=== PATIENT | male | born 1960 | race African-American/Black ===

== ENCOUNTER 2017-03-20 06:45 | Inpatient (IN) ==
[2017-03-20] MEDS ORDERED: SODIUM CHLORIDE 0.9% 1,000 ML IV STA (07:00)
[2017-03-20] MEDS ORDERED: CLINDAMYCIN INJ 900 MG in PREMIX 1 EACH IV STA (07:31)
[2017-03-20] MEDS ORDERED: LEVOFLOXACIN INJ 500 MG in PREMIX 1 EACH IV STA (07:31)
[2017-03-20 07:33] LABS: Basophils # 0.1 10*3/uL (0.0-0.2); Basophils % 0.4 % (0.0-0.8); Eosinophils # 0.2 10*3/uL (0.0-0.87); Eosinophils % 1.2 % (0.00-10.9); Hematocrit 33.7 VOL% (42.0-52.0); Hemoglobin 12.1 GM/DL (14.0-18.0); Immature Granulocytes % 1.7 %; Lymphocytes # 2.6 10*3/uL (1.4-4.0); Lymphocytes % 21.5 % (21.2-54.2); Mean Corpuscular HGB Conc 35.9 GM/DL (32-36); Mean Corpuscular Hemoglobin 33 PG (27-34); Mean Corpuscular Volume 92.3 FL (87-102); Mean Platelet Volume 10.9 FL (9.6-12.0); Monocytes % 8.6 % (1.7-12.7); Neutrophils % 66.6 % (38.7-73.9); Platelet Count 366 T/CUMM (130-400); Red Blood Count 3.65 MC/CUMM (3.8-5.5); Red Cell Distribution Width 11.6 % (9.3-17.3); White Blood Count 12.1 T/CUMM (4-12)
[2017-03-20 07:44] LABS: Apearance,Urine CLEAR (Clear); Bilirubin,Urine Negative (Negative); Blood, Urine Negative (Negative); Glucose,Urine (UA) >=500 mg/dL (Negative); Ketones,Urine Negative (Negative); Nitrite,Urine Negative (Negative); Protein,Urine Negative; RBC,Urine <1 /HPF (0-4); Urine Color Yellow (Yellow); Urine Specific Gravity 1.026 (1.001-1.035)
[2017-03-20] MEDS ORDERED: LEVOFLOXACIN INJ 100 ML IV ONE (07:47)
[2017-03-20 07:51] LABS: Albumin 1.7 G/DL (3.4-5.0); Calcium 7.8 MG/DL (8.5-10.1); Magnesium 1.8 MG/DL (1.8-2.4); Osmolality,Calculated 278.1 MOS/KG (273-304); Potassium 4.6 MMOL/L (3.5-5.1); Total Protein 6.7 G/DL (6.4-8.3)
[2017-03-20] MEDS ORDERED: MORPHINE 2 MG/1 ML SYRINGE IV PRN (08:00)
[2017-03-20] MEDS ORDERED: PIPERACILLIN/TAZOBACTAM 3,375 MG in SODIUM CHLORIDE 0.9% 100 ML IV SCH (08:00)
[2017-03-20 08:23] LABS: Risk Ratio 5.5; VLDL CHOLESTEROL 99.2 MG/DL
[2017-03-20 08:33] LABS: ABG Base Excess 1.5 MMOL/L (-2.5-2.5); ABG HCO3 25.4 MMOL/L (20-26); ABG Oxygen Saturation 80.7 % (95-100); ABG PCO2 38.1 MM HG (35-48); ABG PH 7.436 (7.35-7.45); ABG PO2 46.2 MM HG (80-95); ABG TCO2 23.1 MMOL/L (23-27)
[2017-03-20] MEDS ORDERED: CLINDAMYCIN INJ 50 ML IV ONE (08:58)
[2017-03-20] MEDS ORDERED: INSULIN LISPRO 100 UNIT/ML SUBCUT ONE ×2 (09:25→09:31)
[2017-03-20] MEDS ORDERED: VANCOMYCIN INJ 1,000 MG in SODIUM CHLORIDE 0.9% 250 ML IV ONE (09:30)
[2017-03-20] MEDS: PANTOPRAZOLE 40 MG VIAL IV SCH (10:08)
[2017-03-20] MEDS: SODIUM CHLORIDE 0.45% 1,000 ML IV SCH (10:09)
[2017-03-20] MEDS ORDERED: DEXTROSE 50% 25 GM/50 ML VIAL IV PRN (11:06)
[2017-03-20] MEDS ORDERED: GLUCAGON 1 MG VIAL IM PRN (11:06)
[2017-03-20] MEDS: INSULIN REGULAR 100 UNIT/ML SUBCUT SCH ×3 (13:28→20:57)
[2017-03-20] MEDS: CLINDAMYCIN INJ 600 MG in PREMIX 1 EACH IV SCH ×2 (14:28→21:04)
[2017-03-20] MEDS: SIMVASTATIN 80 MG TABLET PO SCH (16:44)
[2017-03-20] MEDS: INSULIN ASPART PROTAMINE/ASPART 70/30 100 UNIT/ML SUBCUT SCH (16:44)
[2017-03-20] MEDS: metFORMIN 500 MG TABLET PO SCH (16:44)
[2017-03-20] MEDS ORDERED: VANCOMYCIN INJ 1,000 MG in SODIUM CHLORIDE 0.9% 250 ML IV SCH (21:00)
[2017-03-20] MEDS: CHLORHEXIDINE 0.12% ORAL RINSE 60 ML BOTTLE SWISH/SPIT SCH (21:03)
[2017-03-21] MEDS ORDERED: KETOROLAC 30 MG/1 ML VIAL IV ONE (01:28)
[2017-03-21] MEDS ORDERED: DILTIAZEM 50 MG/10 ML VIAL IV ONE ×2 (01:36→02:00)
[2017-03-21] MEDS ORDERED: ENOXAPARIN 80 MG/0.8 ML SYRINGE SUBCUT ONE (01:38)
[2017-03-21 01:51] LABS: Basophils % 0.3 % (0.0-0.8); Eosinophils # 0.1 10*3/uL (0.0-0.87); Eosinophils % 0.5 % (0.00-10.9); Hematocrit 34.1 VOL% (42.0-52.0); Hemoglobin 11.8 GM/DL (14.0-18.0); Immature Granulocytes % 1.3 %; Immature Granulocytes Absolute 0.17 #; Lymphocytes # 1.3 10*3/uL (1.4-4.0); Lymphocytes % 9.8 % (21.2-54.2); Mean Corpuscular HGB Conc 34.6 GM/DL (32-36); Mean Corpuscular Hemoglobin 32 PG (27-34); Mean Corpuscular Volume 93.2 FL (87-102); Mean Platelet Volume 10.1 FL (9.6-12.0); Monocytes # 1.3 10*3/uL (0.11-0.8); Monocytes % 9.6 % (1.7-12.7); Neutrophils # 10.4 10*3/uL (1.4-7.4); Neutrophils % 78.5 % (38.7-73.9); Platelet Count 297 T/CUMM (130-400); Red Blood Count 3.66 MC/CUMM (3.8-5.5); Red Cell Distribution Width 11.4 % (9.3-17.3); White Blood Count 13.2 T/CUMM (4-12)
[2017-03-21 02:05] LABS: Albumin 1.7 G/DL (3.4-5.0); Bilirubin,Total 0.9 MG/DL (0.2-1.0); Calcium 8.4 MG/DL (8.5-10.1); Osmolality,Calculated 266.2 MOS/KG (273-304); Potassium 4.6 MMOL/L (3.5-5.1); Total Protein 6.6 G/DL (6.4-8.3)
[2017-03-21] MEDS ORDERED: SODIUM CHLORIDE 0.9% 500 ML IV ONE (02:12)
[2017-03-21] MEDS: SODIUM CHLORIDE 0.45% 1,000 ML IV SCH ×3 (02:32→14:14)
[2017-03-21] MEDS: ENOXAPARIN 80 MG/0.8 ML SYRINGE SUBCUT SCH ×2 (02:32→14:09)
[2017-03-21] MEDS: CLINDAMYCIN INJ 600 MG in PREMIX 1 EACH IV SCH ×4 (02:33→20:42)
[2017-03-21 02:57] LABS: Troponin I Only 0.019 NG/ML (0.00-0.045)
[2017-03-21] MEDS ORDERED: traZODone 50 MG TABLET PO SCH (09:00)
[2017-03-21] MEDS: CHLORHEXIDINE 0.12% ORAL RINSE 60 ML BOTTLE SWISH/SPIT SCH ×2 (09:04→23:37)
[2017-03-21] MEDS: INSULIN ASPART PROTAMINE/ASPART 70/30 100 UNIT/ML SUBCUT SCH ×2 (09:04→16:56)
[2017-03-21] MEDS: ASPIRIN EC 325 MG TABLET PO SCH (09:05)
[2017-03-21] MEDS: INSULIN REGULAR 100 UNIT/ML SUBCUT SCH ×4 (09:05→20:43)
[2017-03-21] MEDS: CITALOPRAM 20 MG TABLET PO SCH (09:06)
[2017-03-21] MEDS: metFORMIN 500 MG TABLET PO SCH ×2 (09:06→16:56)
[2017-03-21] MEDS: PANTOPRAZOLE 40 MG VIAL IV SCH (09:06)
[2017-03-21] MEDS: LEVOFLOXACIN INJ 750 MG in PREMIX 1 EACH IV SCH (10:37)
[2017-03-21] MEDS: LISINOPRIL/HCTZ 10-12.5 MG TABLET PO SCH (10:38)
[2017-03-21 11:53] LABS: Barbiturates Screen,Urine Negative (Negative); Benzodiazepines Screen,Urine Negative (Negative); Cannabinoid Screen,Urine Negative (Negative); Opiate Screen,Urine Negative (Negative); Phencyclidine Screen,Urine Negative (Negative)
[2017-03-21] MEDS ORDERED: ENOXAPARIN 80 MG/0.8 ML SYRINGE SUBCUT SCH (14:00)
[2017-03-21] MEDS: SIMVASTATIN 40 MG TABLET PO SCH (14:05)
[2017-03-21] MEDS: SIMVASTATIN 80 MG TABLET PO SCH (14:15)
[2017-03-22] MEDS: SODIUM CHLORIDE 0.45% 1,000 ML IV SCH (01:48)
[2017-03-22] MEDS: CLINDAMYCIN INJ 600 MG in PREMIX 1 EACH IV SCH ×3 (03:21→18:10)
[2017-03-22] MEDS: ENOXAPARIN 80 MG/0.8 ML SYRINGE SUBCUT SCH (03:21)
[2017-03-22 09:02] LABS: Calcium 7.7 MG/DL (8.5-10.1); Magnesium 1.7 MG/DL (1.8-2.4); Osmolality,Calculated 271.5 MOS/KG (273-304); Potassium 4.7 MMOL/L (3.5-5.1)
[2017-03-22] MEDS: SIMVASTATIN 40 MG TABLET PO SCH (09:12)
[2017-03-22] MEDS: LEVOFLOXACIN 750 MG TABLET PO SCH (09:12)
[2017-03-22] MEDS: metFORMIN 500 MG TABLET PO SCH ×2 (09:12→18:10)
[2017-03-22] MEDS: CITALOPRAM 20 MG TABLET PO SCH (09:13)
[2017-03-22] MEDS: ASPIRIN EC 325 MG TABLET PO SCH (09:13)
[2017-03-22] MEDS: LISINOPRIL/HCTZ 10-12.5 MG TABLET PO SCH (09:13)
[2017-03-22] MEDS: PANTOPRAZOLE 40 MG VIAL IV SCH (09:15)
[2017-03-22] MEDS: INSULIN ASPART PROTAMINE/ASPART 70/30 100 UNIT/ML SUBCUT SCH ×2 (09:15→18:10)
[2017-03-22] MEDS: INSULIN REGULAR 100 UNIT/ML SUBCUT SCH ×4 (09:15→20:59)
[2017-03-22] MEDS: CHLORHEXIDINE 0.12% ORAL RINSE 60 ML BOTTLE SWISH/SPIT SCH ×2 (09:16→20:59)
[2017-03-22] MEDS: LEVOFLOXACIN INJ 750 MG in PREMIX 1 EACH IV SCH (12:30)
[2017-03-22] MEDS: ENOXAPARIN 40 MG/0.4 ML SYRINGE SUBCUT SCH (20:55)
[2017-03-22] MEDS: traZODone 50 MG TABLET PO SCH (20:55)
[2017-03-23] MEDS: CLINDAMYCIN INJ 600 MG in PREMIX 1 EACH IV SCH ×5 (01:12→23:28)
[2017-03-23 04:53] LABS: Basophils % 0.3 % (0.0-0.8); Eosinophils % 0.2 % (0.00-10.9); Hemoglobin 10.3 GM/DL (14.0-18.0); Immature Granulocytes % 2.6 %; Immature Granulocytes Absolute 0.35 #; Lymphocytes # 1.6 10*3/uL (1.4-4.0); Lymphocytes % 11.6 % (21.2-54.2); Mean Corpuscular HGB Conc 34.3 GM/DL (32-36); Mean Corpuscular Hemoglobin 32 PG (27-34); Mean Corpuscular Volume 93.8 FL (87-102); Mean Platelet Volume 9.8 FL (9.6-12.0); Monocytes # 1.2 10*3/uL (0.11-0.8); Monocytes % 8.8 % (1.7-12.7); Neutrophils # 10.3 10*3/uL (1.4-7.4); Neutrophils % 76.5 % (38.7-73.9); Platelet Count 315 T/CUMM (130-400); Red Cell Distribution Width 11.7 % (9.3-17.3); White Blood Count 13.5 T/CUMM (4-12)
[2017-03-23 05:26] LABS: Calcium 8.3 MG/DL (8.5-10.1); Magnesium 1.7 MG/DL (1.8-2.4); Osmolality,Calculated 266.2 MOS/KG (273-304); Potassium 4.2 MMOL/L (3.5-5.1)
[2017-03-23] MEDS: INSULIN REGULAR 100 UNIT/ML SUBCUT SCH ×4 (08:45→20:49)
[2017-03-23] MEDS: PANTOPRAZOLE 40 MG VIAL IV SCH (08:46)
[2017-03-23] MEDS: SIMVASTATIN 40 MG TABLET PO SCH (08:47)
[2017-03-23] MEDS: LISINOPRIL/HCTZ 10-12.5 MG TABLET PO SCH (08:47)
[2017-03-23] MEDS: CITALOPRAM 20 MG TABLET PO SCH (08:48)
[2017-03-23] MEDS: LEVOFLOXACIN INJ 750 MG in PREMIX 1 EACH IV SCH (08:48)
[2017-03-23] MEDS: LEVOFLOXACIN 750 MG TABLET PO SCH (08:48)
[2017-03-23] MEDS: ASPIRIN EC 325 MG TABLET PO SCH ×2 (08:48→12:43)
[2017-03-23] MEDS: metFORMIN 500 MG TABLET PO SCH ×3 (09:43→16:58)
[2017-03-23] MEDS: INSULIN ASPART PROTAMINE/ASPART 70/30 100 UNIT/ML SUBCUT SCH ×3 (09:43→16:59)
[2017-03-23] MEDS ORDERED: MAGNESIUM SULF RIDER 4 GM in PREMIX 1 EACH IV ONE (09:51)
[2017-03-23] MEDS: CHLORHEXIDINE 0.12% ORAL RINSE 60 ML BOTTLE SWISH/SPIT SCH ×2 (10:57→22:34)
[2017-03-23] MEDS: traZODone 50 MG TABLET PO SCH (20:48)
[2017-03-23] MEDS: ENOXAPARIN 40 MG/0.4 ML SYRINGE SUBCUT SCH (20:49)
[2017-03-24 05:06] LABS: Basophils # 0.1 10*3/uL (0.0-0.2); Basophils % 0.5 % (0.0-0.8); Eosinophils # 0.2 10*3/uL (0.0-0.87); Eosinophils % 1.7 % (0.00-10.9); Hematocrit 30.5 VOL% (42.0-52.0); Hemoglobin 10.1 GM/DL (14.0-18.0); Immature Granulocytes Absolute 0.64 #; Lymphocytes # 1.8 10*3/uL (1.4-4.0); Lymphocytes % 17.2 % (21.2-54.2); Mean Corpuscular HGB Conc 33.1 GM/DL (32-36); Mean Corpuscular Hemoglobin 32 PG (27-34); Mean Corpuscular Volume 97.1 FL (87-102); Mean Platelet Volume 10.6 FL (9.6-12.0); Monocytes # 1.1 10*3/uL (0.11-0.8); Monocytes % 10.3 % (1.7-12.7); Neutrophils # 6.8 10*3/uL (1.4-7.4); Neutrophils % 64.3 % (38.7-73.9); Platelet Count 325 T/CUMM (130-400); Red Blood Count 3.14 MC/CUMM (3.8-5.5); Red Cell Distribution Width 12.1 % (9.3-17.3); White Blood Count 10.6 T/CUMM (4-12)
[2017-03-24 05:38] LABS: Band Neutrophils 5 % (0-10); Eosinophils 2 % (0-10); Hypochromasia 1+; Lymphocytes 17 % (20-55); Metamyelocytes 1 %; Myelocytes 2 %; Segmented Neutrophils 64 % (50-85); Total Cells Counted 100
[2017-03-24 05:39] LABS: Albumin 1.6 G/DL (3.4-5.0); Calcium 8.2 MG/DL (8.5-10.1); Osmolality,Calculated 276.5 MOS/KG (273-304); Platelet Estimate Normal; Potassium 4.8 MMOL/L (3.5-5.1); Total Protein 6.5 G/DL (6.4-8.3)
[2017-03-24] MEDS: CLINDAMYCIN INJ 600 MG in PREMIX 1 EACH IV SCH ×2 (05:45→12:30)
[2017-03-24 07:37] VITALS: BP 111/58
[2017-03-24] MEDS: LEVOFLOXACIN 750 MG TABLET PO SCH (09:41)
[2017-03-24] MEDS: LISINOPRIL/HCTZ 10-12.5 MG TABLET PO SCH (09:41)
[2017-03-24] MEDS: SIMVASTATIN 40 MG TABLET PO SCH (09:41)
[2017-03-24] MEDS: ASPIRIN EC 325 MG TABLET PO SCH (09:41)
[2017-03-24] MEDS: INSULIN REGULAR 100 UNIT/ML SUBCUT SCH ×2 (09:42→12:20)
[2017-03-24] MEDS: CITALOPRAM 20 MG TABLET PO SCH (09:42)
[2017-03-24] MEDS: metFORMIN 500 MG TABLET PO SCH (09:42)
[2017-03-24] MEDS: PANTOPRAZOLE 40 MG VIAL IV SCH (09:42)
[2017-03-24] MEDS: LEVOFLOXACIN INJ 750 MG in PREMIX 1 EACH IV SCH (09:47)
[2017-03-24] MEDS: CHLORHEXIDINE 0.12% ORAL RINSE 60 ML BOTTLE SWISH/SPIT SCH (09:53)
[2017-03-24] MEDS: INSULIN ASPART PROTAMINE/ASPART 70/30 100 UNIT/ML SUBCUT SCH (10:21)
[2017-03-27] MEDS ORDERED: metFORMIN 500 MG TABLET PO SCH ×2 (08:00→17:00)
[2017-04-02] MEDS ORDERED: metFORMIN 500 MG TABLET PO SCH (08:00)
== END 2017-03-24 12:30 | disposition home or self-care (01) | DRG 871 ==
LOC: EDBD → EDUNIT# → N.ED 06:45 → SUATTDRO 07:54 → N.EDINP 07:54 → N.2E 09:08 → N.TELES 03-21 02:00
PROVIDERS: ADMIT Internal Medicine; ATTEND Internal Medicine

== ENCOUNTER 2017-10-14 12:00 | Inpatient (IN) ==
[2017-10-14 12:43] LABS: Basophils # 0.1 10*3/uL (0.0-0.2); Basophils % 0.8 % (0.0-0.8); Eosinophils # 0.2 10*3/uL (0.0-0.87); Eosinophils % 2.8 % (0.00-10.9); Hematocrit 35.8 VOL% (42.0-52.0); Hemoglobin 12.4 GM/DL (14.0-18.0); Immature Granulocytes % 0.9 %; Immature Granulocytes Absolute 0.07 #; Lymphocytes # 1.7 10*3/uL (1.4-4.0); Lymphocytes % 22.3 % (21.2-54.2); Mean Corpuscular HGB Conc 34.6 GM/DL (32-36); Mean Corpuscular Hemoglobin 32 PG (27-34); Mean Platelet Volume 10.1 FL (9.6-12.0); Monocytes % 13.2 % (1.7-12.7); Neutrophils # 4.5 10*3/uL (1.4-7.4); Platelet Count 266 T/CUMM (130-400); Red Blood Count 3.89 MC/CUMM (3.8-5.5); Red Cell Distribution Width 11.8 % (9.3-17.3); White Blood Count 7.5 T/CUMM (4-12)
[2017-10-14 12:55] LABS: INR 1.1; PT Patient Result 11.5 SECS
[2017-10-14 13:07] LABS: Alanine Aminotransferase 40 U/L (16-61); Albumin 2.3 G/DL (3.4-5.0); Alkaline Phosphatase 84 U/L (45-117); Aspartate Amino Transferase 58 U/L (0-37); Blood Urea Nitrogen 12 MG/DL (7-18); Calcium 8.7 MG/DL (8.5-10.1); Glucose 95 MG/DL (74-106); Osmolality,Calculated 274.7 MOS/KG (273-304); Potassium 3.9 MMOL/L (3.5-5.1); Sodium 138 MMOL/L (136-145); Total Protein 6.9 G/DL (6.4-8.3)
[2017-10-14 13:08] LABS: Lactic Acid 2.7 MMOL/L (0.4-2.0)
[2017-10-14] MEDS ORDERED: SODIUM CHLORIDE 0.9% 1,000 ML IV STA (13:42)
[2017-10-14] MEDS ORDERED: VANCOMYCIN INJ 1,000 MG in SODIUM CHLORIDE 0.9% 250 ML IV STA (13:54)
[2017-10-14] MEDS ORDERED: VANCOMYCIN 1,000 MG VIAL ONE (14:10)
[2017-10-14] MEDS ORDERED: NICOTINE 21 MG/24 HR PATCH TRANSDERM PRN (14:24)
[2017-10-14] MEDS ORDERED: traZODone 50 MG TABLET PO PRN (14:24)
[2017-10-14] MEDS ORDERED: ACETAMINOPHEN 325 MG TABLET PO PRN (14:24)
[2017-10-14] MEDS ORDERED: ONDANSETRON 4 MG/2 ML VIAL IV PRN (14:24)
[2017-10-14] MEDS ORDERED: DOCUSATE SODIUM 100 MG CAPSULE PO PRN (14:24)
[2017-10-14] MEDS ORDERED: diphenhydrAMINE CAP 25 MG CAPSULE PO PRN (14:24)
[2017-10-14] MEDS ORDERED: DEXTROSE 50% 25 GM/50 ML VIAL IV PRN (14:33)
[2017-10-14] MEDS ORDERED: GLUCAGON 1 MG VIAL IM PRN (14:33)
[2017-10-14] MEDS: SODIUM CHLORIDE 0.9% 1,000 ML IV SCH ×2 (15:37→23:18)
[2017-10-14] MEDS: LEVOFLOXACIN INJ 750 MG in PREMIX 1 EACH IV SCH (16:09)
[2017-10-14] MEDS: PANTOPRAZOLE 40 MG TABLET PO SCH (16:09)
[2017-10-14] MEDS: INSULIN LISPRO 100 UNIT/ML SUBCUT SCH (16:10)
[2017-10-14] MEDS: DOCUSATE SODIUM 100 MG CAPSULE PO SCH (20:59)
[2017-10-14] MEDS: VANCOMYCIN INJ 1,000 MG in SODIUM CHLORIDE 0.9% 250 ML IV SCH (23:17)
[2017-10-15 06:47] LABS: Basophils % 0.5 % (0.0-0.8); Eosinophils # 0.2 10*3/uL (0.0-0.87); Eosinophils % 2.1 % (0.00-10.9); Hematocrit 30.5 VOL% (42.0-52.0); Hemoglobin 10.8 GM/DL (14.0-18.0); Immature Granulocytes % 1.5 %; Immature Granulocytes Absolute 0.11 #; Lymphocytes # 1.9 10*3/uL (1.4-4.0); Lymphocytes % 26.6 % (21.2-54.2); Mean Corpuscular HGB Conc 35.4 GM/DL (32-36); Mean Corpuscular Hemoglobin 32 PG (27-34); Mean Platelet Volume 10.5 FL (9.6-12.0); Monocytes # 0.9 10*3/uL (0.11-0.8); Monocytes % 12.5 % (1.7-12.7); Neutrophils # 4.2 10*3/uL (1.4-7.4); Neutrophils % 56.8 % (38.7-73.9); Platelet Count 266 T/CUMM (130-400); Red Blood Count 3.39 MC/CUMM (3.8-5.5); Red Cell Distribution Width 11.7 % (9.3-17.3); White Blood Count 7.3 T/CUMM (4-12)
[2017-10-15] MEDS: VANCOMYCIN INJ 1,000 MG in SODIUM CHLORIDE 0.9% 250 ML IV SCH ×3 (06:50→22:09)
[2017-10-15 07:09] LABS: Calcium 8.1 MG/DL (8.5-10.1); Osmolality,Calculated 273.7 MOS/KG (273-304); Potassium 4.2 MMOL/L (3.5-5.1); Risk Ratio 3.25; VLDL CHOLESTEROL 20.4 MG/DL
[2017-10-15] MEDS: SODIUM CHLORIDE 0.9% 1,000 ML IV SCH ×2 (07:12→19:18)
[2017-10-15] MEDS: INSULIN LISPRO 100 UNIT/ML SUBCUT SCH ×2 (09:19→17:12)
[2017-10-15] MEDS: CITALOPRAM 20 MG TABLET PO SCH (09:21)
[2017-10-15] MEDS: DOCUSATE SODIUM 100 MG CAPSULE PO SCH ×2 (09:21→20:57)
[2017-10-15] MEDS: PANTOPRAZOLE 40 MG TABLET PO SCH (09:21)
[2017-10-15] MEDS ORDERED: BUPIVACAINE 0.5% 50 ML VIAL ONE (11:47)
[2017-10-15] MEDS ORDERED: LIDOCAINE 1% 20 ML VIAL ONE (11:47)
[2017-10-15 12:10] LABS: HIV Antigen/Antibody Result Nonreactive (Nonreactive)
[2017-10-15] MEDS ORDERED: SODIUM CHLORIDE 0.9% 100 ML IV ONE (12:29)
[2017-10-15] MEDS ORDERED: MIDAZOLAM 2 MG/2 ML VIAL ONE (12:29)
[2017-10-15] MEDS ORDERED: PROPOFOL 200 MG/20 ML VIAL IV ONE (12:29)
[2017-10-15] MEDS ORDERED: fentaNYL 100 MCG/2 ML VIAL ONE (12:29)
[2017-10-15] MEDS: LEVOFLOXACIN INJ 750 MG in PREMIX 1 EACH IV SCH (18:25)
[2017-10-16] MEDS: SODIUM CHLORIDE 0.9% 1,000 ML IV SCH ×2 (03:16→14:28)
[2017-10-16] MEDS: VANCOMYCIN INJ 1,000 MG in SODIUM CHLORIDE 0.9% 250 ML IV SCH ×3 (06:24→22:49)
[2017-10-16] MEDS: INSULIN LISPRO 100 UNIT/ML SUBCUT SCH ×2 (09:48→17:47)
[2017-10-16] MEDS: PANTOPRAZOLE 40 MG TABLET PO SCH (09:49)
[2017-10-16] MEDS: CITALOPRAM 20 MG TABLET PO SCH (09:49)
[2017-10-16] MEDS: DOCUSATE SODIUM 100 MG CAPSULE PO SCH ×2 (09:49→21:16)
[2017-10-16] MEDS ORDERED: ACETAMINOPHEN 325 MG TABLET PO PRN (13:02)
[2017-10-16 14:19] LABS: Albumin 1.7 G/DL (3.4-5.0); Bilirubin,Total 0.7 MG/DL (0.2-1.0); Calcium 8.1 MG/DL (8.5-10.1); Osmolality,Calculated 277.1 MOS/KG (273-304); Potassium 3.9 MMOL/L (3.5-5.1); Total Protein 6.1 G/DL (6.4-8.3)
[2017-10-16] MEDS: RIFAMPIN 300 MG CAPSULE PO SCH (14:24)
[2017-10-16] MEDS: PYRIDOXINE 50 MG TABLET PO SCH (14:24)
[2017-10-16] MEDS: ISONIAZID 300 MG TABLET PO SCH (14:24)
[2017-10-16] MEDS: PYRAZINAMIDE 500 MG TABLET PO SCH (14:25)
[2017-10-16] MEDS: ETHAMBUTOL 400 MG TABLET PO SCH (14:31)
[2017-10-16] MEDS: INSULIN ASPART PROTAMINE/ASPART 70/30 100 UNIT/ML SUBCUT SCH (18:48)
[2017-10-16] MEDS: ALBUTEROL/IPRATROPIUM 3 ML NEB RESP TX SCH (19:30)
[2017-10-16] MEDS: traZODone 50 MG TABLET PO SCH (21:16)
[2017-10-16] MEDS: LEVOFLOXACIN INJ 750 MG in PREMIX 1 EACH IV SCH (21:17)
[2017-10-17] MEDS: ALBUTEROL/IPRATROPIUM 3 ML NEB RESP TX SCH ×4 (01:36→19:05)
[2017-10-17 04:17] LABS: Basophils % 0.4 % (0.0-0.8); Eosinophils # 0.2 10*3/uL (0.0-0.87); Eosinophils % 2.9 % (0.00-10.9); Hematocrit 27.6 VOL% (42.0-52.0); Hemoglobin 9.2 GM/DL (14.0-18.0); Immature Granulocytes % 1.3 %; Immature Granulocytes Absolute 0.09 #; Lymphocytes # 1.9 10*3/uL (1.4-4.0); Lymphocytes % 26.2 % (21.2-54.2); Mean Corpuscular HGB Conc 33.3 GM/DL (32-36); Mean Corpuscular Hemoglobin 32 PG (27-34); Mean Corpuscular Volume 94.8 FL (87-102); Mean Platelet Volume 10.2 FL (9.6-12.0); Monocytes % 13.4 % (1.7-12.7); Neutrophils % 55.8 % (38.7-73.9); Platelet Count 244 T/CUMM (130-400); Red Blood Count 2.91 MC/CUMM (3.8-5.5); Red Cell Distribution Width 11.6 % (9.3-17.3); White Blood Count 7.2 T/CUMM (4-12)
[2017-10-17 04:49] LABS: Calcium 7.9 MG/DL (8.5-10.1); Osmolality,Calculated 280.5 MOS/KG (273-304); Potassium 3.9 MMOL/L (3.5-5.1)
[2017-10-17] MEDS: VANCOMYCIN INJ 1,000 MG in SODIUM CHLORIDE 0.9% 250 ML IV SCH ×3 (06:09→22:50)
[2017-10-17] MEDS: DEXTROMETHORPHAN ER 6 MG/ML 90 ML/BOTTLE PO PRN ×2 (06:09→21:31)
[2017-10-17] MEDS: CITALOPRAM 20 MG TABLET PO SCH (09:54)
[2017-10-17] MEDS: ISONIAZID 300 MG TABLET PO SCH (09:54)
[2017-10-17] MEDS: DOCUSATE SODIUM 100 MG CAPSULE PO SCH ×2 (09:54→21:03)
[2017-10-17] MEDS: ETHAMBUTOL 400 MG TABLET PO SCH (09:55)
[2017-10-17] MEDS: PYRIDOXINE 50 MG TABLET PO SCH (09:55)
[2017-10-17] MEDS: RIFAMPIN 300 MG CAPSULE PO SCH (09:55)
[2017-10-17] MEDS: PANTOPRAZOLE 40 MG TABLET PO SCH (09:55)
[2017-10-17] MEDS: PYRAZINAMIDE 500 MG TABLET PO SCH (09:55)
[2017-10-17] MEDS: LISINOPRIL/HCTZ 20-25 MG TABLET PO SCH (09:55)
[2017-10-17] MEDS: INSULIN LISPRO 100 UNIT/ML SUBCUT SCH ×2 (09:57→17:28)
[2017-10-17] MEDS: INSULIN ASPART PROTAMINE/ASPART 70/30 100 UNIT/ML SUBCUT SCH ×3 (09:58→21:31)
[2017-10-17] MEDS: traZODone 50 MG TABLET PO SCH (21:03)
[2017-10-17] MEDS: LEVOFLOXACIN INJ 750 MG in PREMIX 1 EACH IV SCH (21:04)
[2017-10-17] MEDS: CLORAZEPATE 7.5 MG TABLET PO PRN (21:31)
[2017-10-18] MEDS: ALBUTEROL/IPRATROPIUM 3 ML NEB RESP TX SCH ×4 (00:58→18:48)
[2017-10-18 04:18] LABS: Basophils % 0.6 % (0.0-0.8); Eosinophils # 0.2 10*3/uL (0.0-0.87); Eosinophils % 3.1 % (0.00-10.9); Hematocrit 29.9 VOL% (42.0-52.0); Hemoglobin 10.2 GM/DL (14.0-18.0); Immature Granulocytes % 2.9 %; Immature Granulocytes Absolute 0.21 #; Lymphocytes # 1.6 10*3/uL (1.4-4.0); Lymphocytes % 22.2 % (21.2-54.2); Mean Corpuscular HGB Conc 34.1 GM/DL (32-36); Mean Corpuscular Hemoglobin 31 PG (27-34); Mean Corpuscular Volume 91.4 FL (87-102); Mean Platelet Volume 10.1 FL (9.6-12.0); Monocytes # 0.8 10*3/uL (0.11-0.8); Monocytes % 11.8 % (1.7-12.7); Neutrophils # 4.2 10*3/uL (1.4-7.4); Neutrophils % 59.4 % (38.7-73.9); Platelet Count 293 T/CUMM (130-400); Red Blood Count 3.27 MC/CUMM (3.8-5.5); Red Cell Distribution Width 11.7 % (9.3-17.3); White Blood Count 7.1 T/CUMM (4-12)
[2017-10-18 04:52] LABS: Calcium 8.3 MG/DL (8.5-10.1); Osmolality,Calculated 285.4 MOS/KG (273-304); Potassium 3.6 MMOL/L (3.5-5.1)
[2017-10-18] MEDS: VANCOMYCIN INJ 1,000 MG in SODIUM CHLORIDE 0.9% 250 ML IV SCH ×3 (05:20→23:47)
[2017-10-18] MEDS: CITALOPRAM 20 MG TABLET PO SCH (09:25)
[2017-10-18] MEDS: CLORAZEPATE 7.5 MG TABLET PO PRN ×3 (09:25→22:20)
[2017-10-18] MEDS: INSULIN LISPRO 100 UNIT/ML SUBCUT SCH ×2 (10:13→18:27)
[2017-10-18] MEDS: DOCUSATE SODIUM 100 MG CAPSULE PO SCH ×2 (10:14→21:03)
[2017-10-18] MEDS: ISONIAZID 300 MG TABLET PO SCH (10:15)
[2017-10-18] MEDS: LISINOPRIL/HCTZ 20-25 MG TABLET PO SCH (10:15)
[2017-10-18] MEDS: ETHAMBUTOL 400 MG TABLET PO SCH (10:15)
[2017-10-18] MEDS: INSULIN ASPART PROTAMINE/ASPART 70/30 100 UNIT/ML SUBCUT SCH ×2 (10:15→18:27)
[2017-10-18] MEDS: PYRAZINAMIDE 500 MG TABLET PO SCH (10:16)
[2017-10-18] MEDS: RIFAMPIN 300 MG CAPSULE PO SCH (10:16)
[2017-10-18] MEDS: PANTOPRAZOLE 40 MG TABLET PO SCH (10:16)
[2017-10-18] MEDS: PYRIDOXINE 50 MG TABLET PO SCH (10:16)
[2017-10-18] MEDS: traZODone 50 MG TABLET PO SCH (21:03)
[2017-10-18] MEDS: DEXTROMETHORPHAN ER 6 MG/ML 90 ML/BOTTLE PO PRN (21:03)
[2017-10-18] MEDS: LEVOFLOXACIN INJ 750 MG in PREMIX 1 EACH IV SCH (22:18)
[2017-10-19] MEDS: ALBUTEROL/IPRATROPIUM 3 ML NEB RESP TX SCH ×4 (00:27→20:46)
[2017-10-19 04:35] LABS: Basophils # 0.1 10*3/uL (0.0-0.2); Basophils % 0.8 % (0.0-0.8); Eosinophils # 0.4 10*3/uL (0.0-0.87); Eosinophils % 6.5 % (0.00-10.9); Hemoglobin 10.3 GM/DL (14.0-18.0); Immature Granulocytes % 3.6 %; Immature Granulocytes Absolute 0.24 #; Lymphocytes # 1.7 10*3/uL (1.4-4.0); Mean Corpuscular HGB Conc 34.3 GM/DL (32-36); Mean Corpuscular Hemoglobin 32 PG (27-34); Mean Corpuscular Volume 91.7 FL (87-102); Mean Platelet Volume 10.3 FL (9.6-12.0); Monocytes # 0.7 10*3/uL (0.11-0.8); Monocytes % 10.2 % (1.7-12.7); Neutrophils # 3.6 10*3/uL (1.4-7.4); Neutrophils % 53.9 % (38.7-73.9); Platelet Count 326 T/CUMM (130-400); Red Blood Count 3.27 MC/CUMM (3.8-5.5); Red Cell Distribution Width 11.7 % (9.3-17.3); White Blood Count 6.7 T/CUMM (4-12)
[2017-10-19] MEDS: VANCOMYCIN INJ 1,000 MG in SODIUM CHLORIDE 0.9% 250 ML IV SCH ×2 (05:40→14:51)
[2017-10-19 05:50] LABS: Calcium 8.3 MG/DL (8.5-10.1)
[2017-10-19 06:00] LABS: Osmolality,Calculated 284.4 MOS/KG (273-304); Potassium 3.9 MMOL/L (3.5-5.1)
[2017-10-19] MEDS: ETHAMBUTOL 400 MG TABLET PO SCH (08:16)
[2017-10-19] MEDS: ISONIAZID 300 MG TABLET PO SCH (08:17)
[2017-10-19] MEDS: RIFAMPIN 300 MG CAPSULE PO SCH (08:17)
[2017-10-19] MEDS: CITALOPRAM 20 MG TABLET PO SCH (08:17)
[2017-10-19] MEDS: INSULIN LISPRO 100 UNIT/ML SUBCUT SCH ×2 (08:17→17:26)
[2017-10-19] MEDS: DOCUSATE SODIUM 100 MG CAPSULE PO SCH ×2 (08:17→21:04)
[2017-10-19] MEDS: PANTOPRAZOLE 40 MG TABLET PO SCH (08:17)
[2017-10-19] MEDS: PYRIDOXINE 50 MG TABLET PO SCH (08:17)
[2017-10-19] MEDS: LISINOPRIL/HCTZ 20-25 MG TABLET PO SCH (08:17)
[2017-10-19] MEDS: PYRAZINAMIDE 500 MG TABLET PO SCH (08:17)
[2017-10-19] MEDS: INSULIN ASPART PROTAMINE/ASPART 70/30 100 UNIT/ML SUBCUT SCH ×2 (08:18→21:04)
[2017-10-19 08:43] LABS: Albumin 1.5 G/DL (3.4-5.0); Bilirubin,Direct 0.6 MG/DL (0.0-0.20); Bilirubin,Indirect 0.3 MG/DL (0.0-1.0); Bilirubin,Total 0.9 MG/DL (0.2-1.0)
[2017-10-19 14:11] LABS: TB2 Ag Minus Result > 10.00 IU/mL
[2017-10-19] MEDS: glipiZIDE 10 MG TABLET PO SCH (16:47)
[2017-10-19] MEDS: traZODone 50 MG TABLET PO SCH (21:04)
[2017-10-19] MEDS: LEVOFLOXACIN INJ 750 MG in PREMIX 1 EACH IV SCH (21:05)
[2017-10-20] MEDS: ALBUTEROL/IPRATROPIUM 3 ML NEB RESP TX SCH ×4 (01:40→19:30)
[2017-10-20 04:23] LABS: Basophils # 0.1 10*3/uL (0.0-0.2); Basophils % 0.9 % (0.0-0.8); Eosinophils # 0.4 10*3/uL (0.0-0.87); Eosinophils % 5.5 % (0.00-10.9); Hematocrit 31.3 VOL% (42.0-52.0); Hemoglobin 10.3 GM/DL (14.0-18.0); Immature Granulocytes % 4.6 %; Immature Granulocytes Absolute 0.29 #; Lymphocytes # 1.4 10*3/uL (1.4-4.0); Mean Corpuscular HGB Conc 32.9 GM/DL (32-36); Mean Corpuscular Hemoglobin 31 PG (27-34); Mean Corpuscular Volume 94.8 FL (87-102); Mean Platelet Volume 9.8 FL (9.6-12.0); Monocytes # 0.7 10*3/uL (0.11-0.8); Monocytes % 10.5 % (1.7-12.7); Neutrophils # 3.6 10*3/uL (1.4-7.4); Neutrophils % 56.5 % (38.7-73.9); Platelet Count 362 T/CUMM (130-400); Red Cell Distribution Width 11.9 % (9.3-17.3); White Blood Count 6.4 T/CUMM (4-12)
[2017-10-20 05:32] LABS: Albumin 1.6 G/DL (3.4-5.0); Bilirubin,Total 1.2 MG/DL (0.2-1.0); Calcium 8.6 MG/DL (8.5-10.1); Osmolality,Calculated 281.3 MOS/KG (273-304); Potassium 3.9 MMOL/L (3.5-5.1); Total Protein 6.4 G/DL (6.4-8.3)
[2017-10-20] MEDS: RIFAMPIN 300 MG CAPSULE PO SCH (08:18)
[2017-10-20] MEDS: glipiZIDE 10 MG TABLET PO SCH ×2 (08:19→16:25)
[2017-10-20] MEDS: PYRAZINAMIDE 500 MG TABLET PO SCH (08:19)
[2017-10-20] MEDS: CITALOPRAM 20 MG TABLET PO SCH (08:19)
[2017-10-20] MEDS: ETHAMBUTOL 400 MG TABLET PO SCH (08:19)
[2017-10-20] MEDS: ISONIAZID 300 MG TABLET PO SCH (08:19)
[2017-10-20] MEDS: PYRIDOXINE 50 MG TABLET PO SCH (08:19)
[2017-10-20] MEDS: DOCUSATE SODIUM 100 MG CAPSULE PO SCH ×3 (08:19→21:10)
[2017-10-20] MEDS: LISINOPRIL/HCTZ 20-25 MG TABLET PO SCH (08:19)
[2017-10-20] MEDS: INSULIN ASPART PROTAMINE/ASPART 70/30 100 UNIT/ML SUBCUT SCH ×2 (08:19→20:58)
[2017-10-20] MEDS: PANTOPRAZOLE 40 MG TABLET PO SCH (08:19)
[2017-10-20] MEDS: INSULIN LISPRO 100 UNIT/ML SUBCUT SCH ×2 (08:20→16:53)
[2017-10-20] MEDS: VANCOMYCIN INJ 1,000 MG in SODIUM CHLORIDE 0.9% 250 ML IV SCH ×3 (09:40→23:47)
[2017-10-20] MEDS: traZODone 50 MG TABLET PO SCH (21:01)
[2017-10-20] MEDS: LEVOFLOXACIN INJ 750 MG in PREMIX 1 EACH IV SCH (21:01)
[2017-10-21] MEDS: ALBUTEROL/IPRATROPIUM 3 ML NEB RESP TX SCH ×4 (01:04→19:21)
[2017-10-21] MEDS: INSULIN LISPRO 100 UNIT/ML SUBCUT SCH ×2 (07:30→16:33)
[2017-10-21] MEDS: glipiZIDE 10 MG TABLET PO SCH ×2 (07:30→17:00)
[2017-10-21] MEDS: LISINOPRIL/HCTZ 20-25 MG TABLET PO SCH (08:20)
[2017-10-21] MEDS: CITALOPRAM 20 MG TABLET PO SCH (08:20)
[2017-10-21] MEDS: VANCOMYCIN INJ 1,000 MG in SODIUM CHLORIDE 0.9% 250 ML IV SCH (08:20)
[2017-10-21] MEDS: PYRAZINAMIDE 500 MG TABLET PO SCH (08:20)
[2017-10-21] MEDS: PYRIDOXINE 50 MG TABLET PO SCH (08:20)
[2017-10-21] MEDS: INSULIN ASPART PROTAMINE/ASPART 70/30 100 UNIT/ML SUBCUT SCH ×2 (08:20→09:00)
[2017-10-21] MEDS: DOCUSATE SODIUM 100 MG CAPSULE PO SCH (08:20)
[2017-10-21] MEDS: ETHAMBUTOL 400 MG TABLET PO SCH (08:20)
[2017-10-21] MEDS: ISONIAZID 300 MG TABLET PO SCH (08:20)
[2017-10-21] MEDS: RIFAMPIN 300 MG CAPSULE PO SCH (08:20)
[2017-10-21] MEDS: PANTOPRAZOLE 40 MG TABLET PO SCH (08:20)
[2017-10-21] MEDS: LEVOFLOXACIN 500 MG TABLET PO SCH (09:35)
[2017-10-21] MEDS: AMOXICILLIN/CLAV 875 MG TABLET PO SCH ×2 (14:10→20:25)
[2017-10-21] MEDS ORDERED: INSULIN ASPART PROTAMINE/ASPART 70/30 100 UNIT/ML SUBCUT SCH (19:00)
[2017-10-21] MEDS: traZODone 50 MG TABLET PO SCH (20:25)
[2017-10-22] MEDS: ALBUTEROL/IPRATROPIUM 3 ML NEB RESP TX SCH ×4 (00:30→19:14)
[2017-10-22 04:46] LABS: Basophils # 0.1 10*3/uL (0.0-0.2); Basophils % 0.8 % (0.0-0.8); Eosinophils # 0.3 10*3/uL (0.0-0.87); Eosinophils % 3.5 % (0.00-10.9); Hematocrit 32.9 VOL% (42.0-52.0); Hemoglobin 10.8 GM/DL (14.0-18.0); Immature Granulocytes % 4.7 %; Immature Granulocytes Absolute 0.42 #; Lymphocytes # 1.8 10*3/uL (1.4-4.0); Lymphocytes % 20.3 % (21.2-54.2); Mean Corpuscular HGB Conc 32.8 GM/DL (32-36); Mean Corpuscular Hemoglobin 32 PG (27-34); Mean Corpuscular Volume 97.1 FL (87-102); Mean Platelet Volume 9.6 FL (9.6-12.0); Monocytes # 0.8 10*3/uL (0.11-0.8); Monocytes % 8.7 % (1.7-12.7); Neutrophils # 5.6 10*3/uL (1.4-7.4); Platelet Count 382 T/CUMM (130-400); Red Blood Count 3.39 MC/CUMM (3.8-5.5); Red Cell Distribution Width 12.2 % (9.3-17.3)
[2017-10-22 05:07] LABS: Bilirubin,Total 1.9 MG/DL (0.2-1.0); Calcium 8.3 MG/DL (8.5-10.1); Osmolality,Calculated 271.8 MOS/KG (273-304); Potassium 4.2 MMOL/L (3.5-5.1)
[2017-10-22] MEDS: INSULIN LISPRO 100 UNIT/ML SUBCUT SCH ×2 (08:11→16:35)
[2017-10-22] MEDS: glipiZIDE 10 MG TABLET PO SCH ×2 (08:11→16:35)
[2017-10-22] MEDS: CITALOPRAM 20 MG TABLET PO SCH (09:10)
[2017-10-22] MEDS: RIFAMPIN 300 MG CAPSULE PO SCH (09:10)
[2017-10-22] MEDS: PYRIDOXINE 50 MG TABLET PO SCH (09:10)
[2017-10-22] MEDS: INSULIN ASPART PROTAMINE/ASPART 70/30 100 UNIT/ML SUBCUT SCH ×2 (09:10→18:30)
[2017-10-22] MEDS: LISINOPRIL/HCTZ 20-25 MG TABLET PO SCH (09:10)
[2017-10-22] MEDS: AMOXICILLIN/CLAV 875 MG TABLET PO SCH ×2 (09:10→20:19)
[2017-10-22] MEDS: ETHAMBUTOL 400 MG TABLET PO SCH (09:10)
[2017-10-22] MEDS: LEVOFLOXACIN 500 MG TABLET PO SCH (09:10)
[2017-10-22] MEDS: PANTOPRAZOLE 40 MG TABLET PO SCH (09:10)
[2017-10-22] MEDS: ISONIAZID 300 MG TABLET PO SCH (09:10)
[2017-10-22] MEDS: PYRAZINAMIDE 500 MG TABLET PO SCH (09:10)
[2017-10-22] MEDS: traZODone 50 MG TABLET PO SCH (20:18)
[2017-10-23] MEDS: ALBUTEROL/IPRATROPIUM 3 ML NEB RESP TX SCH ×4 (00:50→19:47)
[2017-10-23 05:22] LABS: Basophils # 0.1 10*3/uL (0.0-0.2); Basophils % 0.7 % (0.0-0.8); Eosinophils # 0.3 10*3/uL (0.0-0.87); Eosinophils % 3.9 % (0.00-10.9); Hematocrit 32.8 VOL% (42.0-52.0); Hemoglobin 10.9 GM/DL (14.0-18.0); Immature Granulocytes % 5.1 %; Immature Granulocytes Absolute 0.35 #; Lymphocytes # 1.7 10*3/uL (1.4-4.0); Mean Corpuscular HGB Conc 33.2 GM/DL (32-36); Mean Corpuscular Hemoglobin 32 PG (27-34); Monocytes # 0.7 10*3/uL (0.11-0.8); Monocytes % 9.7 % (1.7-12.7); Neutrophils # 3.9 10*3/uL (1.4-7.4); Neutrophils % 55.6 % (38.7-73.9); Platelet Count 392 T/CUMM (130-400); Red Blood Count 3.38 MC/CUMM (3.8-5.5); Red Cell Distribution Width 12.4 % (9.3-17.3); White Blood Count 6.9 T/CUMM (4-12)
[2017-10-23 05:55] LABS: Calcium 8.2 MG/DL (8.5-10.1); Osmolality,Calculated 280.8 MOS/KG (273-304); Potassium 4.3 MMOL/L (3.5-5.1)
[2017-10-23 06:40] LABS: Band Neutrophils 2 % (0-10); Eosinophils 7 % (0-10); Lymphocytes 35 % (20-55); Macrocytosis 1+; Platelet Estimate Normal; Segmented Neutrophils 54 % (50-85); Total Cells Counted 100
[2017-10-23] MEDS: PYRIDOXINE 50 MG TABLET PO SCH (08:19)
[2017-10-23] MEDS: AMOXICILLIN/CLAV 875 MG TABLET PO SCH ×2 (08:19→20:33)
[2017-10-23] MEDS: ETHAMBUTOL 400 MG TABLET PO SCH (08:19)
[2017-10-23] MEDS: CLORAZEPATE 7.5 MG TABLET PO PRN (08:20)
[2017-10-23] MEDS: LISINOPRIL/HCTZ 20-25 MG TABLET PO SCH (08:20)
[2017-10-23] MEDS: RIFAMPIN 300 MG CAPSULE PO SCH (08:20)
[2017-10-23] MEDS: ISONIAZID 300 MG TABLET PO SCH (08:20)
[2017-10-23] MEDS: PYRAZINAMIDE 500 MG TABLET PO SCH (08:20)
[2017-10-23] MEDS: CITALOPRAM 20 MG TABLET PO SCH (08:20)
[2017-10-23] MEDS: LEVOFLOXACIN 500 MG TABLET PO SCH (08:20)
[2017-10-23] MEDS: glipiZIDE 10 MG TABLET PO SCH ×2 (08:20→17:15)
[2017-10-23] MEDS: PANTOPRAZOLE 40 MG TABLET PO SCH (08:20)
[2017-10-23] MEDS: INSULIN ASPART PROTAMINE/ASPART 70/30 100 UNIT/ML SUBCUT SCH ×3 (08:21→20:33)
[2017-10-23] MEDS: INSULIN LISPRO 100 UNIT/ML SUBCUT SCH ×2 (08:21→17:15)
[2017-10-23] MEDS: traZODone 50 MG TABLET PO SCH (20:33)
[2017-10-24] MEDS: ALBUTEROL/IPRATROPIUM 3 ML NEB RESP TX SCH ×4 (01:47→19:02)
[2017-10-24] MEDS: AMOXICILLIN/CLAV 875 MG TABLET PO SCH ×2 (08:04→20:42)
[2017-10-24] MEDS: ETHAMBUTOL 400 MG TABLET PO SCH (08:05)
[2017-10-24] MEDS: PYRIDOXINE 50 MG TABLET PO SCH (08:05)
[2017-10-24] MEDS: LISINOPRIL/HCTZ 20-25 MG TABLET PO SCH (08:05)
[2017-10-24] MEDS: ISONIAZID 300 MG TABLET PO SCH (08:05)
[2017-10-24] MEDS: PYRAZINAMIDE 500 MG TABLET PO SCH (08:05)
[2017-10-24] MEDS: RIFAMPIN 300 MG CAPSULE PO SCH (08:06)
[2017-10-24] MEDS: PANTOPRAZOLE 40 MG TABLET PO SCH (08:06)
[2017-10-24] MEDS: LEVOFLOXACIN 500 MG TABLET PO SCH (08:06)
[2017-10-24] MEDS: CITALOPRAM 20 MG TABLET PO SCH (08:07)
[2017-10-24] MEDS: glipiZIDE 10 MG TABLET PO SCH ×2 (08:07→17:04)
[2017-10-24] MEDS: INSULIN LISPRO 100 UNIT/ML SUBCUT SCH ×2 (09:22→17:03)
[2017-10-24] MEDS: INSULIN ASPART PROTAMINE/ASPART 70/30 100 UNIT/ML SUBCUT SCH ×2 (10:18→20:42)
[2017-10-24] MEDS: traZODone 50 MG TABLET PO SCH (20:42)
[2017-10-24] MEDS: CLORAZEPATE 7.5 MG TABLET PO PRN (20:43)
[2017-10-25] MEDS: ALBUTEROL/IPRATROPIUM 3 ML NEB RESP TX SCH ×4 (00:32→19:40)
[2017-10-25] MEDS: INSULIN LISPRO 100 UNIT/ML SUBCUT SCH ×2 (07:36→16:46)
[2017-10-25] MEDS: glipiZIDE 10 MG TABLET PO SCH ×2 (08:04→16:46)
[2017-10-25] MEDS: INSULIN ASPART PROTAMINE/ASPART 70/30 100 UNIT/ML SUBCUT SCH ×2 (08:05→18:44)
[2017-10-25] MEDS: ETHAMBUTOL 400 MG TABLET PO SCH (08:26)
[2017-10-25] MEDS: PYRAZINAMIDE 500 MG TABLET PO SCH (08:27)
[2017-10-25] MEDS: CITALOPRAM 20 MG TABLET PO SCH (08:27)
[2017-10-25] MEDS: AMOXICILLIN/CLAV 875 MG TABLET PO SCH ×2 (08:27→20:37)
[2017-10-25] MEDS: LEVOFLOXACIN 500 MG TABLET PO SCH (08:27)
[2017-10-25] MEDS: RIFAMPIN 300 MG CAPSULE PO SCH (08:27)
[2017-10-25] MEDS: LISINOPRIL/HCTZ 20-25 MG TABLET PO SCH (08:28)
[2017-10-25] MEDS: PYRIDOXINE 50 MG TABLET PO SCH (08:28)
[2017-10-25] MEDS: ISONIAZID 300 MG TABLET PO SCH (08:28)
[2017-10-25] MEDS: PANTOPRAZOLE 40 MG TABLET PO SCH (08:28)
[2017-10-25] MEDS: traZODone 50 MG TABLET PO SCH (20:37)
[2017-10-25] MEDS: CLORAZEPATE 7.5 MG TABLET PO PRN (20:38)
[2017-10-26] MEDS: ALBUTEROL/IPRATROPIUM 3 ML NEB RESP TX SCH ×4 (00:39→19:35)
[2017-10-26 04:53] LABS: Basophils # 0.1 10*3/uL (0.0-0.2); Eosinophils # 0.2 10*3/uL (0.0-0.87); Eosinophils % 3.6 % (0.00-10.9); Hematocrit 32.4 VOL% (42.0-52.0); Immature Granulocytes % 2.6 %; Immature Granulocytes Absolute 0.16 #; Lymphocytes # 1.9 10*3/uL (1.4-4.0); Lymphocytes % 30.9 % (21.2-54.2); Mean Corpuscular Hemoglobin 32 PG (27-34); Mean Corpuscular Volume 93.9 FL (87-102); Mean Platelet Volume 9.9 FL (9.6-12.0); Monocytes # 0.5 10*3/uL (0.11-0.8); Monocytes % 8.7 % (1.7-12.7); Neutrophils # 3.2 10*3/uL (1.4-7.4); Neutrophils % 53.2 % (38.7-73.9); Platelet Count 356 T/CUMM (130-400); Red Blood Count 3.45 MC/CUMM (3.8-5.5); Red Cell Distribution Width 12.9 % (9.3-17.3); White Blood Count 6.1 T/CUMM (4-12)
[2017-10-26 05:14] LABS: Bilirubin,Total 2.6 MG/DL (0.2-1.0); Calcium 8.8 MG/DL (8.5-10.1); Osmolality,Calculated 278.8 MOS/KG (273-304); Potassium 3.7 MMOL/L (3.5-5.1); Total Protein 7.5 G/DL (6.4-8.3)
[2017-10-26] MEDS: INSULIN LISPRO 100 UNIT/ML SUBCUT SCH ×3 (07:40→20:27)
[2017-10-26] MEDS: glipiZIDE 10 MG TABLET PO SCH ×2 (07:51→17:14)
[2017-10-26] MEDS: ETHAMBUTOL 400 MG TABLET PO SCH (09:31)
[2017-10-26] MEDS: AMOXICILLIN/CLAV 875 MG TABLET PO SCH ×2 (09:31→20:27)
[2017-10-26] MEDS: CITALOPRAM 20 MG TABLET PO SCH (09:31)
[2017-10-26] MEDS: PANTOPRAZOLE 40 MG TABLET PO SCH (09:31)
[2017-10-26] MEDS: PYRIDOXINE 50 MG TABLET PO SCH (09:32)
[2017-10-26] MEDS: LEVOFLOXACIN 500 MG TABLET PO SCH (09:32)
[2017-10-26] MEDS: LISINOPRIL/HCTZ 20-25 MG TABLET PO SCH (09:32)
[2017-10-26] MEDS: PYRAZINAMIDE 500 MG TABLET PO SCH (09:32)
[2017-10-26] MEDS: RIFAMPIN 300 MG CAPSULE PO SCH (09:33)
[2017-10-26] MEDS: ISONIAZID 300 MG TABLET PO SCH (09:33)
[2017-10-26] MEDS: INSULIN ASPART PROTAMINE/ASPART 70/30 100 UNIT/ML SUBCUT SCH ×2 (09:33→18:50)
[2017-10-26] MEDS: traZODone 50 MG TABLET PO SCH (20:27)
[2017-10-27] MEDS: ALBUTEROL/IPRATROPIUM 3 ML NEB RESP TX SCH ×3 (00:33→12:45)
[2017-10-27] MEDS: glipiZIDE 10 MG TABLET PO SCH ×2 (08:38→17:25)
[2017-10-27] MEDS: INSULIN ASPART PROTAMINE/ASPART 70/30 100 UNIT/ML SUBCUT SCH ×2 (08:39→21:19)
[2017-10-27] MEDS: INSULIN LISPRO 100 UNIT/ML SUBCUT SCH ×4 (08:39→20:24)
[2017-10-27] MEDS: AMOXICILLIN/CLAV 875 MG TABLET PO SCH ×2 (09:07→21:18)
[2017-10-27] MEDS: ISONIAZID 300 MG TABLET PO SCH (09:07)
[2017-10-27] MEDS: PYRAZINAMIDE 500 MG TABLET PO SCH (09:08)
[2017-10-27] MEDS: CITALOPRAM 20 MG TABLET PO SCH (09:08)
[2017-10-27] MEDS: PANTOPRAZOLE 40 MG TABLET PO SCH (09:08)
[2017-10-27] MEDS: LISINOPRIL/HCTZ 20-25 MG TABLET PO SCH (09:08)
[2017-10-27] MEDS: ETHAMBUTOL 400 MG TABLET PO SCH (09:08)
[2017-10-27] MEDS: PYRIDOXINE 50 MG TABLET PO SCH (09:09)
[2017-10-27] MEDS: RIFAMPIN 300 MG CAPSULE PO SCH (09:09)
[2017-10-27] MEDS: LEVOFLOXACIN 500 MG TABLET PO SCH (09:09)
[2017-10-27] MEDS ORDERED: INSULIN ASPART PROTAMINE/ASPART 70/30 100 UNIT/ML SUBCUT SCH ×2 (11:57)
[2017-10-27] MEDS: metFORMIN 500 MG TABLET PO SCH (17:25)
[2017-10-27] MEDS: traZODone 50 MG TABLET PO SCH (21:19)
[2017-10-28] MEDS: ETHAMBUTOL 400 MG TABLET PO SCH (08:08)
[2017-10-28] MEDS: CITALOPRAM 20 MG TABLET PO SCH (08:08)
[2017-10-28] MEDS: PYRIDOXINE 50 MG TABLET PO SCH (08:08)
[2017-10-28] MEDS: LISINOPRIL/HCTZ 20-25 MG TABLET PO SCH (08:08)
[2017-10-28] MEDS: AMOXICILLIN/CLAV 875 MG TABLET PO SCH ×2 (08:09→20:59)
[2017-10-28] MEDS: PYRAZINAMIDE 500 MG TABLET PO SCH (08:09)
[2017-10-28] MEDS: PANTOPRAZOLE 40 MG TABLET PO SCH (08:09)
[2017-10-28] MEDS: glipiZIDE 10 MG TABLET PO SCH ×2 (08:09→16:32)
[2017-10-28] MEDS: LEVOFLOXACIN 500 MG TABLET PO SCH (08:09)
[2017-10-28] MEDS: RIFAMPIN 300 MG CAPSULE PO SCH (08:09)
[2017-10-28] MEDS: ISONIAZID 300 MG TABLET PO SCH (08:09)
[2017-10-28] MEDS: metFORMIN 500 MG TABLET PO SCH ×2 (08:09→16:33)
[2017-10-28] MEDS: INSULIN ASPART PROTAMINE/ASPART 70/30 100 UNIT/ML SUBCUT SCH ×2 (08:12→16:33)
[2017-10-28] MEDS: INSULIN LISPRO 100 UNIT/ML SUBCUT SCH ×4 (08:16→21:00)
[2017-10-28] MEDS: traZODone 50 MG TABLET PO SCH (21:00)
[2017-10-29 05:17] LABS: Albumin 2.1 G/DL (3.4-5.0); Bilirubin,Total 2.7 MG/DL (0.2-1.0); Calcium 8.7 MG/DL (8.5-10.1); Osmolality,Calculated 273.1 MOS/KG (273-304); Potassium 3.9 MMOL/L (3.5-5.1); Total Protein 7.5 G/DL (6.4-8.3)
[2017-10-29] MEDS: CITALOPRAM 20 MG TABLET PO SCH (08:33)
[2017-10-29] MEDS: INSULIN ASPART PROTAMINE/ASPART 70/30 100 UNIT/ML SUBCUT SCH ×2 (08:33→16:07)
[2017-10-29] MEDS: ETHAMBUTOL 400 MG TABLET PO SCH (08:34)
[2017-10-29] MEDS: RIFAMPIN 300 MG CAPSULE PO SCH (08:34)
[2017-10-29] MEDS: PANTOPRAZOLE 40 MG TABLET PO SCH (08:34)
[2017-10-29] MEDS: PYRAZINAMIDE 500 MG TABLET PO SCH (08:34)
[2017-10-29] MEDS: ISONIAZID 300 MG TABLET PO SCH (08:34)
[2017-10-29] MEDS: LISINOPRIL/HCTZ 20-25 MG TABLET PO SCH (08:34)
[2017-10-29] MEDS: AMOXICILLIN/CLAV 875 MG TABLET PO SCH ×2 (08:34→20:26)
[2017-10-29] MEDS: glipiZIDE 10 MG TABLET PO SCH ×2 (08:34→16:07)
[2017-10-29] MEDS: PYRIDOXINE 50 MG TABLET PO SCH (08:34)
[2017-10-29] MEDS: metFORMIN 500 MG TABLET PO SCH ×2 (08:35→16:07)
[2017-10-29] MEDS: LEVOFLOXACIN 500 MG TABLET PO SCH (08:35)
[2017-10-29] MEDS: INSULIN LISPRO 100 UNIT/ML SUBCUT SCH ×4 (08:46→20:30)
[2017-10-29] MEDS: traZODone 50 MG TABLET PO SCH (20:26)
[2017-10-30] MEDS: glipiZIDE 10 MG TABLET PO SCH (08:24)
[2017-10-30] MEDS: INSULIN ASPART PROTAMINE/ASPART 70/30 100 UNIT/ML SUBCUT SCH (08:24)
[2017-10-30] MEDS: metFORMIN 500 MG TABLET PO SCH (08:24)
[2017-10-30] MEDS: INSULIN LISPRO 100 UNIT/ML SUBCUT SCH (08:24)
[2017-10-30] MEDS: PANTOPRAZOLE 40 MG TABLET PO SCH (09:45)
[2017-10-30] MEDS: PYRIDOXINE 50 MG TABLET PO SCH (09:45)
[2017-10-30] MEDS: ISONIAZID 300 MG TABLET PO SCH (09:45)
[2017-10-30] MEDS: CITALOPRAM 20 MG TABLET PO SCH (09:45)
[2017-10-30] MEDS: LISINOPRIL/HCTZ 20-25 MG TABLET PO SCH (09:45)
[2017-10-30] MEDS: ETHAMBUTOL 400 MG TABLET PO SCH (09:45)
[2017-10-30] MEDS: AMOXICILLIN/CLAV 875 MG TABLET PO SCH (09:46)
[2017-10-30] MEDS: LEVOFLOXACIN 500 MG TABLET PO SCH (09:46)
[2017-10-30] MEDS: PYRAZINAMIDE 500 MG TABLET PO SCH (09:46)
[2017-10-30] MEDS: RIFAMPIN 300 MG CAPSULE PO SCH (09:46)
[2017-10-30 11:09] VITALS: BP 130/87
== END 2017-10-30 10:40 | disposition home or self-care (01) | DRG 255 ==
LOC: EDUNIT# → EDBD → N.ED 12:00 → N.EDINP 14:43 → SUATTDRO 14:43 → N.3E 14:47 → N.ICU 10-17 20:00
PROVIDERS: ADMIT Surgery; ATTEND Family Medicine

== ENCOUNTER 2017-12-18 09:56 | Inpatient (IN) ==
[2017-12-18 10:54] LABS: Basophils # 0.1 10*3/uL (0.0-0.2); Basophils % 1.2 % (0.0-0.8); Eosinophils # 0.2 10*3/uL (0.0-0.87); Eosinophils % 5.6 % (0.00-10.9); Hematocrit 44.5 VOL% (42.0-52.0); Hemoglobin 15.6 GM/DL (14.0-18.0); Immature Granulocytes % 0.5 %; Immature Granulocytes Absolute 0.02 #; Lymphocytes # 1.2 10*3/uL (1.4-4.0); Lymphocytes % 28.6 % (21.2-54.2); Mean Corpuscular HGB Conc 35.1 GM/DL (32-36); Mean Corpuscular Hemoglobin 32 PG (27-34); Mean Platelet Volume 12.9 FL (9.6-12.0); Monocytes # 0.5 10*3/uL (0.11-0.8); Monocytes % 11.2 % (1.7-12.7); Neutrophils # 2.3 10*3/uL (1.4-7.4); Neutrophils % 52.9 % (38.7-73.9); Platelet Count 165 T/CUMM (130-400); Red Blood Count 4.89 MC/CUMM (3.8-5.5); Red Cell Distribution Width 12.4 % (9.3-17.3); White Blood Count 4.3 T/CUMM (4-12)
[2017-12-18 10:57] LABS: Apearance,Urine CLEAR (Clear); Bilirubin,Urine Negative (Negative); Blood, Urine Negative (Negative); Glucose,Urine (UA) >=500 mg/dL (Negative); Ketones,Urine 20 mg/dL (Negative); Nitrite,Urine Negative (Negative); Protein,Urine 30 MG/DL; RBC,Urine <1 /HPF (0-4); Urine Color Amber (Yellow); Urine Specific Gravity 1.026 (1.001-1.035)
[2017-12-18 11:33] LABS: Albumin 2.7 G/DL (3.4-5.0); Bilirubin,Total 4.8 MG/DL (0.2-1.0); Osmolality,Calculated 287.5 MOS/KG (273-304); Potassium 4.7 MMOL/L (3.5-5.1); Total Protein 8.2 G/DL (6.4-8.3)
[2017-12-18 12:03] LABS: ABG Base Excess -4.2 MMOL/L (-2.5-2.5); ABG HCO3 20.9 MMOL/L (20-26); ABG Oxygen Saturation 96.1 % (95-100); ABG PCO2 36.2 MM HG (35-48); ABG PH 7.362 (7.35-7.45); ABG PO2 83.2 MM HG (80-95); ABG TCO2 17.5 MMOL/L (23-27)
[2017-12-18 20:07] LABS: Apearance,Urine CLEAR (Clear); Bilirubin,Urine Negative (Negative); Blood, Urine Negative (Negative); Glucose,Urine (UA) >=500 mg/dL (Negative); Ketones,Urine 20 mg/dL (Negative); Nitrite,Urine Negative (Negative); Protein,Urine 30 MG/DL; RBC,Urine <1 /HPF (0-4); Urine Color Amber (Yellow); Urine Specific Gravity 1.027 (1.001-1.035); WBC,Urine <1 /HPF (0-6)
[2017-12-19 06:26] LABS: Basophils # 0.1 10*3/uL (0.0-0.2); Basophils % 1.3 % (0.0-0.8); Eosinophils # 0.5 10*3/uL (0.0-0.87); Eosinophils % 11.1 % (0.00-10.9); Hematocrit 43.7 VOL% (42.0-52.0); Hemoglobin 15.3 GM/DL (14.0-18.0); Immature Granulocytes % 0.4 %; Immature Granulocytes Absolute 0.02 #; Lymphocytes # 1.9 10*3/uL (1.4-4.0); Lymphocytes % 41.6 % (21.2-54.2); Mean Corpuscular Hemoglobin 32 PG (27-34); Mean Corpuscular Volume 90.3 FL (87-102); Mean Platelet Volume 13.4 FL (9.6-12.0); Monocytes # 0.4 10*3/uL (0.11-0.8); Monocytes % 9.1 % (1.7-12.7); Neutrophils # 1.7 10*3/uL (1.4-7.4); Neutrophils % 36.5 % (38.7-73.9); Platelet Count 187 T/CUMM (130-400); Red Blood Count 4.84 MC/CUMM (3.8-5.5); Red Cell Distribution Width 12.3 % (9.3-17.3); White Blood Count 4.5 T/CUMM (4-12)
[2017-12-19 06:57] LABS: Blood Urea Nitrogen 16 MG/DL (7-18); Calcium 9.1 MG/DL (8.5-10.1); Glucose 201 MG/DL (74-106); Potassium 3.7 MMOL/L (3.5-5.1); Sodium 136 MMOL/L (136-145); Troponin I < 0.015 NG/ML (0.00-0.045)
[2017-12-19 07:25] LABS: Band Neutrophils 1 % (0-10); Eosinophils 10 % (0-10); Lymphocytes 48 % (20-55); Platelet Estimate Normal; Segmented Neutrophils 39 % (50-85); Total Cells Counted 100
[2017-12-20 08:12] VITALS: BP 132/80
[2017-12-20 08:39] LABS: Calcium 8.4 MG/DL (8.5-10.1); Osmolality,Calculated 279.4 MOS/KG (273-304); Potassium 4.3 MMOL/L (3.5-5.1)
== END 2017-12-20 11:20 | disposition home or self-care (01) | DRG 638 ==
LOC: N.ED 09:56 → SUATTDRO 12:23 → N.EDINP 12:23 → N.2E 13:47
PROVIDERS: ADMIT Internal Medicine

== ENCOUNTER 2018-10-14 08:23 | Observation (INO) ==
[2018-10-14] MEDS ORDERED: SODIUM CHLORIDE 0.9% 500 ML IV STA (08:35)
[2018-10-14] MEDS ORDERED: ONDANSETRON 4 MG/2 ML VIAL IV STA (08:35)
[2018-10-14 09:02] LABS: Basophils # 0.1 10*3/uL (0.0-0.2); Basophils % 0.9 % (0.0-0.8); Eosinophils # 0.5 10*3/uL (0.0-0.87); Eosinophils % 7.8 % (0.00-10.9); Hematocrit 41.7 VOL% (42.0-52.0); Immature Granulocytes % 1.1 %; Immature Granulocytes Absolute 0.07 #; Lymphocytes # 1.6 10*3/uL (1.4-4.0); Lymphocytes % 25.4 % (21.2-54.2); Mean Corpuscular Volume 89.7 FL (87-102); Mean Platelet Volume 11.6 FL (9.6-12.0); Neutrophils % 55.8 % (38.7-73.9); Platelet Count 154 T/CUMM (130-400); Red Blood Count 4.65 MC/CUMM (3.8-5.5); Red Cell Distribution Width 11.4 % (9.3-17.3); White Blood Count 6.4 T/CUMM (4-12)
[2018-10-14 09:17] LABS: Calcium 9.8 MG/DL (8.5-10.1); Osmolality,Calculated 298.2 MOS/KG (273-304)
[2018-10-14] MEDS ORDERED: INSULIN REGULAR 100 UNIT/ML ONE (09:24)
[2018-10-14] MEDS ORDERED: INSULIN REGULAR 100 UNIT/ML IV ONE (09:28)
[2018-10-14] MEDS ORDERED: SODIUM CHLORIDE 0.9% 1,000 ML IV STA (09:28)
[2018-10-14] MEDS ORDERED: INSULIN REGULAR 100 UNIT/ML SUBCUT STA (11:07)
[2018-10-14] MEDS ORDERED: GLUCAGON 1 MG VIAL IM PRN (11:09)
[2018-10-14] MEDS ORDERED: DEXTROSE 50% 25 GM/50 ML VIAL IV PRN (11:09)
[2018-10-14] MEDS ORDERED: ONDANSETRON 4 MG/2 ML VIAL IV PRN (11:09)
[2018-10-14] MEDS: INSULIN LISPRO 100 UNIT/ML SUBCUT SCH ×3 (13:13→21:00)
[2018-10-14] MEDS: SODIUM CHLORIDE 0.9% 1,000 ML IV SCH ×2 (13:15→22:41)
[2018-10-14] MEDS: NICOTINE 21 MG/24 HR PATCH TRANSDERM SCH (13:27)
[2018-10-14 14:11] LABS: Calcium 9.4 MG/DL (8.5-10.1); Osmolality,Calculated 290.1 MOS/KG (273-304)
[2018-10-14] MEDS: metFORMIN 500 MG TABLET PO SCH (16:57)
[2018-10-14] MEDS ORDERED: INSULIN ASPART PROTAMINE/ASPART 70/30 100 UNIT/ML SUBCUT SCH (19:00)
[2018-10-14] MEDS: LISINOPRIL/HCTZ 20-25 MG TABLET PO SCH (21:00)
[2018-10-15 05:37] LABS: Calcium 8.9 MG/DL (8.5-10.1)
[2018-10-15] MEDS ORDERED: MAGNESIUM SULF RIDER 2 GM in PREMIX 1 EACH IV ONE (07:28)
[2018-10-15 08:30] VITALS: BP 144/82
[2018-10-15] MEDS: INSULIN LISPRO 100 UNIT/ML SUBCUT SCH (08:51)
[2018-10-15] MEDS: LISINOPRIL/HCTZ 20-25 MG TABLET PO SCH (08:52)
[2018-10-15] MEDS: NICOTINE 21 MG/24 HR PATCH TRANSDERM SCH (08:52)
[2018-10-15] MEDS: metFORMIN 500 MG TABLET PO SCH (08:55)
[2018-10-15] MEDS: SODIUM CHLORIDE 0.9% 1,000 ML IV SCH (08:56)
[2018-10-15] MEDS ORDERED: CITALOPRAM 20 MG TABLET PO SCH (09:00)
[2018-10-15] MEDS ORDERED: INSULIN ASPART PROTAMINE/ASPART 70/30 100 UNIT/ML SUBCUT SCH (09:00)
== END 2018-10-15 10:50 | disposition home or self-care (01) ==
LOC: N.ED 08:23 → N.EDINP 08:23 → SUATTDRO 10:54 → N.5E 12:06
PROVIDERS: ADMIT Family Medicine; ATTEND Internal Medicine Cardiovascular Disease